=== PATIENT | female | born 1985 | race Caucasian/White ===

== ENCOUNTER → 2016-05-31 | Outpatient (CLI) | payer OTHER ==
--- NOTE | 2016-06-01 14:42 | CDE ---
ADMIT: 05/31/2016 RM/LOC: [facility] MR#: [id number] [id number] [place], [place] [address] JEMIMA HUERTAS [address] [place] [id number] Chemical Dependency Evaluation SEX: F AGE: 30 : 1985 A. DEMOGRAPHICS: NAME: Jemima Huertas DATE OF : 1985 EVALUATING COUNSELOR: Justin Lacey MS, LMHP, LADC, CSAT DATE OF EVALUATION: 05/31/2016 B. PRESENTING PROBLEM/CHIEF COMPLAINT: This client received a willful reckless driving charge and was referred here by her insurance attorney. She has court next month for this charge. This charge took place in May or June a year ago. This client could not remember. She did not know what her DAGO was, but according to what she said she drank, it had to be around 0.15, which would have been well over the limit, but it may have been dropped down to willful reckless driving. C. MEDICAL HISTORY: D. 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 She also worked at [employer], but has not had a long history of working at any one place very long. EDUCATION: This client received her high school diploma in 2004. She has no future or present goals in the area of education at this time. : This client has never been in the . E. ALCOHOL/DRUG ASSESSMENT SUMMARY: ALCOHOL: This client first drank alcohol at age 21. She said she would drink 3 or 4 beers once a month. Her last use of alcohol was June of 2015 when she drank six beers, which is more than the three or a four she said she normally drinks and that was when she said she received her reckless driving charge. MARIJUANA: No use reported. COCAINE: No use reported. METHAMPHETAMINE: No use reported. HALLUCINOGENS: No use reported. HEROIN: No use reported. MISUSE OF PRESCRIPTION DRUGS: No abuse reported. OTHER DRUGS (INHALANTS, OVER THE COUNTER, ETC): No abuse reported. NICOTINE: This client first smoked cigarettes at age 25. She said she smokes about a half a pack a day and has smoked today. This client denied she had any negative consequences due to her drinking, but when asked about the legal charges she has had she has said, oh yeah, I did have some legal charges due to my drinking. F. LEGAL HISTORY: ADMIT: 05/31/2016 [facility] MR#: [id number] [address] [address] JEMIMA HUERTAS [address] [place] [address] Chemical Dependency Evaluation SEX: F AGE: 30 : 1985 This client stated that she has had two DUIs and a willful reckless charge. She did not know what any of her BACs were. She lost her license and had to pay fines and was placed on probation for the two DUIs. The willful recklessness is still pending, but she does not have a license at this time. G. FAMILY/SOCIAL/PEER HISTORY: This client was raised in the [facility]. She described her family upbringing as great. She said her parents are and . She is not sure when or why. She said she gets along great with her mom, but does not know her dad. Her worst memory growing up is the court stuff she has been dealing with. This client stated that she has never been ; however, she is in a relationship now and has been for 2 years. She denied having any serious family problems affecting her life at this time. SEXUAL HISTORY AND TRAUMA: Client stated she is heterosexual and she is comfortable with that orientation. She denied ever being the victim of sexual or physical abuse and she denied ever inflicting any sexual or physical abuse on others. SOCIAL RELATIONSHIPS: This client prefers to hang around people that do not use. The majority of her friends are nonusers. She denied that her using or drinking has caused any problems with her friends. She tends to spend more time alone than with other people. She denied ever being involved in any gang activity and stated that something that she is ashamed of is DUIs that she has had and have to go through this legal system process again. RECREATIONAL AND LEISURE ACTIVITIES: Client stated that she enjoys being a home body, likes to hang out with her boyfriend and dog. She likes to go shopping and likes to work. She denied ever drinking while doing any of those activities. SPIRITUAL: This client stated she does have a belief in God or a higher power. She is not sure what her purpose and meaning in life is, but she said I guess to make the best of it. She did say that she has lost her license which has meant a lot to her. She does belong to the [employer]. H. PSYCHIATRIC/BEHAVIORAL HISTORY: This client has never thought of suicide and never attempted it. She did state that she has had counseling for mental health or behavioral problems. I. COLLATERAL INFORMATION: This client's boyfriend was talked to. He said that she has not drank since her last arrest. Prior to that, he said she drank some but did not see it as a ADMIT: 05/31/2016 RM/LOC: [facility] MR#: [id number] [address] [address] JEMIMA HUERTAS [facility] [address] [address] Chemical Dependency Evaluation SEX: F AGE: 30 : 1985 problem. An attempt to get a hold of this client's insurance attorney has beenunsuccessful at the time of this dictation. THE DRINKER TYPE RATING: Is a measure of how the client perceives their own drinking and/or using. This rating is indicative of how resistant or accepting the person is to the drinking problem. The client chose their rating from the following classifications: ALCOHOL Total Abstainer Light Social (non-problem) Drinker Moderate Social (non-problem) Drinker User Heavy Social (non-problem)Drinker Problem Drinker Alcoholic OTHER DRUG Nonuser Light Social (non-problem) User Moderate Social (non-problem) User Heavy Social (non-problem) User Problem User Addicted/Dependent This client listed herself as a light social to total abstainer drinker of alcohol and a nonuser of other drugs. She listed her strengths as being independent, strong, smart, and honest. Weaknesses she wrote down: None SUBSTANCE ABUSE SUBTLE SCREENING INVENTORY (SASSI): The SASSI is an assessment tool specifically designed to provide a clearer picture of what lies beneath the facade presented by most patients or clients. Scores on this assessment aid in distinguishing nonabusers from abusers, alcoholics from drug abusers and nondefensive clients from defensive ones. The incorporation of a "denial scale" further enhances the ability to make an accurate recommendation. This client's SASSI scores, according to the decision rule, indicate she has a low probability of having a substance dependence disorder. However she had a 10 on the defensiveness and a 2 on the RAP, which indicates that there may be a lot of things missing and things are being covered up. Client scores are: Face Valid Alcohol (FVA): 0. ADMIT: 05/31/2016 RM/LOC: [facility] MR#: [id number] [address] [address] ALEKSANDARJEMIMA [address] [place] [address] Chemical Dependency Evaluation SEX: F AGE: 30 : 1985 Symptoms (SYM): 0. Obvious Attributes (OAT): 3. Subtle Attributes (SAT): 4. Defensiveness (DEF): 10. Supplemental Addiction Measure (PEGGY): 7. Family versus Controls (FAM): 12. Correctional (COR): 3. Random Answering Pattern (RAP): 2. Again, these scores indicate that she has a low probability; however, her 10 on her DEF score indicates that the SASSI may be missing some individuals with a substance use disorder and that she is trying to cover up information. We administered the ASI. Please see attached summary sheet. K. CLINICAL IMPRESSION: [place] I: F10.20, alcohol use disorder, moderate, in partial remission. [place] II: V71.09, no diagnosis. [place] III: 799.9 deferred. [place] IV: Primary support group. Economic problems, social environment, and legal system problems. [place] V: Global assessment of functioning 47. This client was on time and well dressed for this interview process. However, it appeared that she minimized her drinking a lot by what showed up on the SASSI scores and the fact that it did not appear to be an issue to her that she has had two DUIs and a willful reckless driving charge that may have been reduced from a DUI. L. RECOMMENDATIONS PRESENTED TO CLIENT: This client was told she would be referred to outpatient counseling. This would be for further evaluation and some education on drinking. CLIENT/FAMILY RESPONSE: This client had no response to the recommendation and appeared to be okay with whatever happened. ASA CLINICAL ASSESSMENT CRITERIA: Low/Medium/High. Dimension 1 = Intoxication and Withdrawal (i.e. history of withdrawal, level of current use): Low. Dimension 2 = Medical (i.e. , diabetes, medications, chronic conditions): Low. ADMIT: 05/31/2016 RM/LOC: [facility] MR#: [id number] [id number] [facility] [address] [place], [place] [address] JEMIMA HUERTAS [address] [place] [address] Chemical Dependency Evaluation SEX: F AGE: 30 : 1985 Dimension 3 = Emotional/Behavior Conditions (i.e. psych history, impulsivity, depression, anxiety, trauma history): Low. Dimension 4 = Treatment Acceptance/Resistance (i.e. past history, minimization/blame, acknowledgement of problem, pressure to seek treatment, does not feel they have a problem): Medium. Dimension 5 = Relapse Potential (i.e. inability to abstain, use despite consequences, significant preoccupation, relapse despite outpatient treatment attempts): Medium. Dimension 6 = Recovery/Living Environment (i.e. current users reside in environment, family attitude, lack of consistent adult support in living environment, high exposure to using in social/work environment): Medium. CRIMINOGENIC RISK FACTORS: Low/Moderate/High. Antisocial Attitudes: Low. Antisocial Peers: Medium. Self Control Skills: Medium. Family Dysfunction: Low. Past Criminality: High. Thank you for the opportunity to work with this client. Justin Lacey MS,OC,JVEON, CSAT/ modl JOB #: [id number] CC:
== END | disposition home or self-care (01) ==
LOC: ADTC.GI 08:31
DX: F10.21 Alcohol dependence, in remission (principal); Z65.3 Problems related to other legal circumstances